=== PATIENT | female | born 1955 | race Asian ===

== ENCOUNTER 2018-10-08 20:32 | Emergency (ER) | payer OTHER ==
[~2018-10-08] VITALS: Ht 160 cm; Wt 65.9 kg
[2018-10-08] MEDS ORDERED: ACETAMINOPHEN 325 MG TABLET PO ONE (22:00)
[2018-10-09] MEDS ORDERED: LIDOCAINE 5% TRANSDERMAL PATCH TD ONE (00:15)
[2018-10-09 00:20] VITALS: BP 136/78
== END 2018-10-09 00:20 | disposition home or self-care (01) ==
LOC: EMS 20:32
DX: S13.4XXA Sprain of ligaments of cervical spine, initial encounter (principal); M54.6 Pain in thoracic spine; V53.5XXA Driver of pick-up truck or van injured in collision with car, pick-up truck or van in traffic accident, initial encounter; Y93.89 Activity, other specified; Y92.89 Other specified places as the place of occurrence of the external cause; Y99.8 Other external cause status
CPT/HCPCS: 72052; 72072